=== PATIENT | male | born 1955 | race Caucasian/White ===

== ENCOUNTER 2018-03-03 07:56 | Day surgery (SDC) | payer OTHER ==
[2018-03-03 08:47] VITALS: BMI 33.5
[2018-03-03] MEDS ORDERED: Lactated Ringer's 500 ML IV ONE (09:12)
[2018-03-03] MEDS: Lactated Ringer's 500 ML IV ONE ×2 (09:12→09:34)
[2018-03-03] MEDS ORDERED: Propofol 10 mg/ml Inj (20 ML) ONE (09:15)
--- NOTE | 2018-03-03 09:17 | CP.SDSHP ---
Same Day Surgery H & P - History Proposed Procedure: colonscopy Pre-Op Diagnosis: SEE NOTES - Allergies Allergies: Allergies No Known Allergies Allergy (Unverified 12/05/13 12:10) - Physical Exam General Appearance: N Vital Signs: Vital Signs 03/03/18 08:21 Temperature 98.6 F Pulse Rate 70 Respiratory 19 Rate Blood Pressure 106/72 O2 Sat by Pulse 100 Oximetry Mental Status: Alert & Oriented x3 Neuro: WNL Heart: WNL Lungs: WNL GI: WNL - {Optional Preform as Required} Breast: WNL Abdomen: WNL Rectal: Other Integument: WNL : WNL Ortho: Other ENT: WNL - Impression Pt. Evaluated Today:Candidate for Anesthesia & Procedure: Yes - Date & Time Time: 09:16 Short Stay Discharge - Short Stay Discharge Admitting Diagnosis/Reason for Visit: ENCOUNTER FOR SCREENING FOR MALIGNANT NEOPLASM OF Disposition: HOME/ ROUTINE
[2018-03-03] MEDS ORDERED: Belladonna-Phenobarbital PO ONE (10:00)
[2018-03-03 11:07] VITALS: BP 111/67; PULSE 68; RESP 22; TEMP 97.3; O2SAT 100
== END 2018-03-03 11:00 | disposition home or self-care (01) ==
LOC: C.ENDO 07:56
PROVIDERS: ATTEND Specialist
DX: Z12.11 Encounter for screening for malignant neoplasm of colon (principal); K57.30 Diverticulosis of large intestine without perforation or abscess without bleeding; K52.9 Noninfective gastroenteritis and colitis, unspecified; K64.8 Other hemorrhoids
CPT/HCPCS: 45378; 88305; J2704